=== PATIENT | female | born 1985 | race Caucasian/White ===

== ENCOUNTER 2018-01-31 10:40 | Emergency (ER) | payer SELFPAY ==
[2018-01-31] MEDS ORDERED: Ketorolac Tromethamine 30 MG/ML VIAL ONE (11:13)
[2018-01-31] MEDS ORDERED: Ondansetron HCl/PF 4 MG/2 ML Vial ONE (11:13)
[2018-01-31 11:23] LABS: Bilirubin Negative (Negative); Blood, Urine Negative (Negative); Clarity Cloudy (Clear); Glucose, Urine (Dipstick) Negative (Negative); Leukocyte Negative (Negative); Nitrite Negative (Negative); Protein, Urine (Dipstick) 100 mg/dL (Neg-Trace); Specific Gravity, Urine 1.015 (1.005-1.030); Urobilinogen 0.2 mg/dL (0.2-1.0); pH, Urine 8.5 (5.0-9.0)
[2018-01-31 11:24] LABS: Pregnancy Test - Urine (BHCG) Negative (Negative); Pregu Control Background? CLEAR/WHITE (CLR/WHITE); Pregu Control Bar Appear? YES (CONTROL BAR); Specific Gravity 1.015 (1.002-1.036)
[2018-01-31 11:30] LABS: #Basophils 0.1 thou/uL (0.0-0.2); #Monocytes 0.4 thou/uL (0.11-0.59); #Neutrophils 17.9 thou/uL (1.40-6.50); %Basophils 0.3 % (0.0-1.0); %Lymphocytes 5.1 % (21.0-51.0); %Monocytes 2.3 % (0.0-10.0); %Neutrophils 92.3 % (42.0-75.0); Hemoglobin 14.9 g/dL (12.0-16.0); Mean Corpuscular HGB CONC 35.7 g/dL (32.0-36.0); Mean Corpuscular Volume 81.2 fl (81.0-99.0); Mean Platelet Volume 7.6 fL (7.4-10.4); Platelet Count 255 thou/uL (130-400); RBC Distribution Width 12.5 % (11.5-14.5); Red Blood Cell (RBC) Count 5.14 mill/uL (4.20-5.40); White Blood Cell (WBC) Count 19.4 thou/uL (4.8-10.8)
[2018-01-31 11:34] LABS: Bacteria/HPF Rare-Few HPF (None Seen); Crystals/HPF 1+ AMORPH PHOS HPF (Negative); RBC/HPF 0-3 HPF (0-3); Squamous Epithelial 0-3 HPF (0-3); WBC/HPF 0-3 HPF (0-3)
[2018-01-31] MEDS ORDERED: Morphine 4 MG/ML Carpuject ONE ×2 (11:34→12:12)
[2018-01-31 11:41] LABS: ALT (SGPT) 18 U/L (8-55); AST (SGOT) 21 U/L (5-34); Albumin 4.6 g/dL (3.5-5.0); Alkaline Phosphatase 96 U/L (40-150); Anion Gap 19 mmol/L (10-20); BUN (Urea Nitrogen) 13 mg/dL (7.0-18.7); Bilirubin, Total 0.5 mg/dL (0.2-1.2); Calc. Creatinine Clearance 0 mL/min (70-130); Calcium 9.7 mg/dL (7.8-10.44); Carbon Dioxide 21 mmol/L (22-29); Chloride 104 mmol/L (98-107); Estimated GFR-MDRD Greater than 90; Globulin 3.5 g/dL (2.4-3.5); Glucose 154 mg/dL (70-105); Lipase 5 U/L (8-78); Potassium 3.9 mmol/L (3.5-5.1); Protein, Total 8.1 g/dL (6.0-8.3); Sodium 140 mmol/L (136-145)
[2018-01-31] MEDS ORDERED: Pantoprazole 40 MG VIAL ONE (13:09)
[2018-01-31] MEDS ORDERED: Prochlorperazine 10 MG/2 ML VIAL ONE (13:09)
--- NOTE | 2018-01-31 18:53 | RAD ---
ABDOMEN: 01/31/2018 FINDINGS: Supine views of the abdomen reveal a normal bowel gas pattern, with the exception of a slightly incre ased amount of air in the stomach and perhaps a little dilation of the second part of the duodenum. Otherwise, there is no dilated bowel. Considerable fecal material is seen in the colon. There appear s to be a prior cholecystectomy. Phleboliths are noted in the pelvis, both sides. The gastric folds may be minimally prominent. The lung bases can be seen and are clear. A sclerotic area over the upper right part of the sacrum is probably in the bone and is probably not significant. IMPRESSION: 1. Mild constipation with a nonspecific bowel gas pattern. 2. Question of slight prominence of rugal folds of the stomach. This may be normal but could be see n in cases of gastritis. POS: HOME
== END 2018-01-31 14:30 | disposition home or self-care (01) ==
LOC: BURERS 10:40
DX: K58.9 Irritable bowel syndrome, unspecified (principal); F41.9 Anxiety disorder, unspecified; F31.9 Bipolar disorder, unspecified; F17.210 Nicotine dependence, cigarettes, uncomplicated; Z79.899 Other long term (current) drug therapy
CPT/HCPCS: 74018; 80053; 81003; 81015; 81025; 83690; 85025; 96361; 96374; 96375; 96376; C9113; J0780; J1885; J2270; J2405